=== PATIENT | female | born 2000 | race Caucasian/White ===

== ENCOUNTER 2024-04-21 23:45 | Emergency (ER) | payer OTHER ==
--- NOTE | 2024-04-22 00:59 | ED Physician Documentation ---
History of Present Illness - Stated complaint Stated Complaint: LIP LAC - Chief complaint Chief Complaint: Heent - History obtained from History obtained from: Patient - Additonal information Additional information: 24yF p/w cat Scratched her right upper lip vomiting tonight. Unsure of last tetanus shot. PD PAST MEDICAL HISTORY - Past Medical History Past Medical History: No - Past Surgical History Past Surgical History: No - Present Medications Home Medications: Ambulatory Orders Medication Instructions Recorded Confirmed No Known Home Medications 04/21/24 04/21/24 - Allergies Allergies/Adverse Reactions: Allergies Allergy/AdvReac Type Severity Reaction Status Date / Time No Known Drug Allergies Allergy Verified 04/21/24 23:58 - Social History Does the pt smoke?: No Smoking Status: Never smoker PD ED PE NORMAL - Vitals Vital signs reviewed: Yes - General General: Alert and oriented X 3, No acute distress, Well developed/nourished - HEENT HEENT: Atraumatic, PERRL, EOMI, Other (Superficial laceration to the right upper lip crossing the vermilion border, well-approximated) Results - Vitals Vitals: Vital Signs - 24 hr 04/21/24 04/22/24 23:56 01:09 Temperature 36.7 C Heart Rate 66 62 Respiratory 16 16 Rate Blood Pressure 125/77 118/72 O2 Saturation 100 99 Oxygen O2 Source Room air Procedures - Laceration (location) Lip right Length in cm: 2 Wound type: Linear, Involvement of free margins of vermilion border Neurovascular status: Sensory intact, Motor intact, Vascular intact Tendon involvement: Tendon intact Wound preparation: Irrigated copiously NS Skin layer closure: Dermabond Other: Patient tolerated well, No complications, Tetanus booster given PD Medical Decision Making - ED course ED course: 24-year-old presents with superficial laceration of right upper lip due to cat scratch, repaired with Dermabond without any issues after copious irrigation with normal saline. Return precautions given. Departure - Departure Disposition: 01 Home, Self Care Clinical Impression: Cat scratch Condition: Stable Instructions: ED Laceration Facial Skin Glue Comments: You were seen in the emergency department for repair of a cut with skin glue. This will fall off on its own like a scab. Please keep the area dry and clean for 48-72 hours and return to the emergency department if you have any new or worsening symptoms or other concerns. Forms: PCP List Discharge Date/Time: 04/22/24 01:10
[2024-04-22] MEDS: TETANUS/DIPHTHERIA/PERTUSSIS 0.5 ML SYRINGE IM ONE (01:06)
[2024-04-22 01:13] VITALS: BP 118/72; O2SAT 99
== END 2024-04-22 01:10 | disposition home or self-care (01) ==
LOC: ED 23:45
DX: S01.511A Laceration without foreign body of lip, initial encounter (principal); W55.03XA Scratched by cat, initial encounter; Z23 Encounter for immunization
CPT/HCPCS: 12011; 90471; 99283